=== PATIENT | female | born 1950 | race Caucasian/White ===

== ENCOUNTER → 2019-02-26 | Outpatient (CLI) | payer OTHER | END | disposition home or self-care (01) | LOC: RAH 10:16 | PROVIDERS: ATTEND Internal Medicine Critical Care Medicine | DX: R05 Cough (principal) | CPT/HCPCS: 71046 ==

== ENCOUNTER 2019-03-07 06:56 | Observation (INO) | payer OTHER ==
[2019-03-05 12:52] VITALS: BP 154/82
[~2019-03-07] VITALS: Ht 162.6 cm; Wt 86.7 kg
[2019-03-07] VITALS (22 sets, daily range): BP systolic 124–149; BP diastolic 69–85
[~2019-03-07 06:56] MED LIST: AEC81 PO; ATOR10 PO; ERGO500014 PO; LABE100T5 PO; LEVO75TA10 PO; LOSA50TA64 PO
[2019-03-07] MEDS ORDERED: LACTATED RINGERS 1000ML 1,000 ML IV ONE (07:41)
[2019-03-07] MEDS ORDERED: LIDOCAINE PF 2% 5ML ABBOJECT ONE (08:16)
[2019-03-07] MEDS ORDERED: PROPOFOL 10 MG/ML 20ML VIAL IV ONE (08:17)
[2019-03-07] MEDS ORDERED: ROPIVACAINE 0.5% 5MG/ML 30ML IJ ONE ×2 (08:17→08:22)
[2019-03-07] MEDS ORDERED: ROCURONIUM 10MG/1ML SYR 10 MG/ML ML ONE (08:17)
[2019-03-07] MEDS ORDERED: MIDAZOLAM HCL 1 MG/ML 2ML VIAL ONE (08:17)
[2019-03-07] MEDS ORDERED: FENTANYL CITRATE PF 50 MCG/1 ML 2ML VIAL ONE ×2 (08:19→11:05)
[2019-03-07] MEDS: CEFAZOLIN SODIUM 1 GM VIAL ONE ×2 (08:40→09:03)
[2019-03-07] MEDS ORDERED: LIDOCAINE HCL-MPF 1% 2ML VIAL IV PRN (08:45)
[2019-03-07] MEDS ORDERED: DiphenhydrAMINE HCL 50 MG/ML VIAL IVP PRN (08:45)
[2019-03-07] MEDS ORDERED: POTASSIUM CHLORIDE 20MEQ/100ML 100 ML IV PRN (08:45)
[2019-03-07] MEDS: ACETAMINOPHEN EXTRA STRENGTH 500 MG TABLET PO SCH ×3 (08:45→23:58)
[2019-03-07] MEDS ORDERED: POTASSIUM CHLORIDE 20 MEQ ERTAB PO PRN (08:45)
[2019-03-07] MEDS ORDERED: HYDROCODONE/ACETAMINOPHEN 5/325 MG TAB PO PRN (08:45)
[2019-03-07] MEDS ORDERED: ONDANSETRON HCL 4 MG/2 ML VIAL IVP PRN (08:45)
[2019-03-07] MEDS ORDERED: FERROUS FUMARATE 324 MG TABLET PO PRN (08:45)
[2019-03-07] MEDS ORDERED: POTASSIUM CHLORIDE 10% ELIXIR 20 MEQ/15 ML UDCUP PO PRN (08:45)
[2019-03-07] MEDS: POLYETHYLENE GLYCOL 3350 17 GM POWD.PACK PO SCH (09:00)
[2019-03-07] MEDS: ASPIRIN 325 MG TABLET PO SCH (09:00)
[2019-03-07] MEDS ORDERED: DEXAMETHASONE SOD PHOSPHATE 10MG/ML 1ML VIAL ONE (09:14)
[2019-03-07] MEDS ORDERED: BACITRACIN 50,000 UNIT VIAL ONE (09:15)
[2019-03-07] MEDS ORDERED: GLYCOPYRROLATE 1 MG/5 ML SYRINGE ONE (10:20)
[2019-03-07] MEDS ORDERED: NEOSTIGMINE 5MG/5ML SYR IV ONE (10:20)
[2019-03-07] MEDS ORDERED: ONDANSETRON HCL 4 MG/2 ML VIAL ONE (10:28)
[2019-03-07] MEDS ORDERED: TRANEXAMIC ACID 1000MG/10ML ONE (10:33)
[2019-03-07] MEDS ORDERED: MEPERIDINE-PF 25 MG/ML SYG ONE ×2 (10:46→10:52)
[2019-03-07] MEDS: SODIUM CHLORIDE 0.9% 1000ML 1,000 ML IV SCH ×2 (13:07→19:28)
--- NOTE | 2019-03-07 15:10 | NUR ---
DCP NOTE Patient lives with spouse, Mateusz Latham, in a mobile home with four steps. She has no home services or DME. PCP is Dr. Endy Clement. Pharmacy is [facility] located in [place]. Patient opened to MD recommendation for post discharge care. Patient's nurse, Anita, notified and will follow up with MD for post discharge orders. Addendum: 03/07/19 at 1513 by LINDSEY BASS SS Amended: Links added.
[2019-03-07] MEDS: HYDROCODONE/ACETAMINOPHEN 5/325 MG TAB PO PRN ×3 (15:25→23:20)
[2019-03-07] MEDS ORDERED: CEFAZOLIN SODIUM 1 GM VIAL IVP SCH (16:00)
--- NOTE | 2019-03-07 16:39 | NUR ---
BIMAL NOTES MD order for for Assisted and PT at home and a standard walker with no wheels. Patient signed consent for [facility]. Consent placed in chart. Patient information sent to and DME company. Pending insurance authorization. DME to be delivered to patient's room. Patient made aware. DCP is for home with on 03/08/19.
[2019-03-07] MEDS ORDERED: MORPHINE SULFATE 2 MG/ML 1ML SYG ONE (17:28)
[2019-03-07] MEDS ORDERED: LABETALOL HCL 100 MG TABLET ONE (19:26)
[2019-03-07] MEDS: LABETALOL HCL 100 MG TABLET PO SCH (19:29)
--- NOTE | 2019-03-07 20:00 | NUR ---
ASSESSMENT NOTE PATIENT AWAKE, ALERT, OX3 , ENCOURAGE DEEP BREATHING EXERCISES , REINFORCE IS PREVIOUSLY TAUGHT , LEFT KNEE WITH SHAZIA BANDAGE AND IMMOBILIZER INTACT, LLE WITH NUMBNESS , FAMILY MEMBER AT BEDSIDE, TEACH PLAN OF CARE AND EXPECTED OUTCOME, BOTH VERBALIZE UNDERSTANDING VIA TEACH BACK
[2019-03-07] MEDS: MORPHINE SULFATE 2 MG/ML 1ML SYG IM PRN (21:16)
[2019-03-07] MEDS ORDERED: CEFAZOLIN SODIUM 1 GM VIAL ONE (23:37)
[2019-03-08] VITALS (7 sets, daily range): BP systolic 97–133; BP diastolic 57–85
[2019-03-08] MEDS: MORPHINE SULFATE 2 MG/ML 1ML SYG IM PRN (01:33)
[2019-03-08] MEDS: SODIUM CHLORIDE 0.9% 1000ML 1,000 ML IV SCH (01:48)
[2019-03-08] MEDS ORDERED: KETOROLAC TROMETHAMINE 30MG/ML ONE (02:26)
[2019-03-08 04:12] LABS: MEAN CORPUSCULAR HEMOGLOBIN 27.5 pg (27.0-33.0); MEAN CORPUSCULAR HGB CONC 31.3 g/dL (32.0-36.0); MEAN CORPUSCULAR VOLUME 87.9 fL (79-99); PLATELET COUNT (AUTO) 298 K/uL (130-400); RED BLOOD CELL COUNT(AUTO) 3.64 MIL/uL (4.00-5.50); RED CELL DISTRIBUTION WIDTH 13.6 % (11.0-15.5); WHITE BLOOD COUNT (AUTO) 10.7 K/uL (4.8-10.8)
[2019-03-08 04:28] LABS: CREATININE 0.8 mg/dL (0.5-1.5); POTASSIUM 3.6 mmol/L (3.5-5.1)
[2019-03-08] MEDS: LEVOTHYROXINE 75 MCG TABLET PO SCH (06:03)
[2019-03-08] MEDS ORDERED: MORPHINE SULFATE 2 MG/ML 1ML SYG IV PRN (07:30)
[2019-03-08] MEDS: KETOROLAC TROMETHAMINE 30MG/ML IV PRN ×3 (08:30→20:03)
[2019-03-08] MEDS: POLYETHYLENE GLYCOL 3350 17 GM POWD.PACK PO SCH (08:30)
[2019-03-08] MEDS: ACETAMINOPHEN EXTRA STRENGTH 500 MG TABLET PO SCH ×3 (08:30→23:24)
[2019-03-08] MEDS: LABETALOL HCL 100 MG TABLET PO SCH ×2 (08:31→20:01)
[2019-03-08] MEDS: ASPIRIN 325 MG TABLET PO SCH (08:31)
[2019-03-08] MEDS ORDERED: ATORVASTATIN CALCIUM 10 MG TABLET ONE (08:35)
[2019-03-08] MEDS ORDERED: VITAMIN D PO SCH (09:00)
[2019-03-08] MEDS: HYDROCODONE/ACETAMINOPHEN 5/325 MG TAB PO PRN ×2 (10:53→15:02)
--- NOTE | 2019-03-08 12:44 | NUR ---
CM Note: [facility] approval CM spoke to Humaira ashton/[facility], pt has approval and acceptance. Pt safe to dc home once DME delivered and MD clear via private car. Primary nurse aware. CM to cont to follow up.
--- NOTE | 2019-03-08 12:45 | NUR ---
BIMAL Note: [facility] approval, pending delivery standard walker no wheels and 3 in 1 chair CM spoke to Karishma ashton/[facility], pt has approval for standard walker no wheels and 3 in 1 chair, pending standard walker no wheels to be delivered in pt's room this afternoon. Primary nurse aware. CM to cont to follow up.
[2019-03-08] MEDS ORDERED: ATORVASTATIN CALCIUM 10 MG TABLET PO SCH (13:00)
[2019-03-08] MEDS ORDERED: LOSARTAN 50 MG TABLET PO SCH (13:00)
--- NOTE | 2019-03-08 14:56 | NUR ---
NOTIFIED DR. HOLT REGARDING APPROVAL INFORMING PT REPORTS CONTINUED HEAVINESS TO LEFT LEG AND LABIA AREA. PT REPORTS SHE HAS NOT BEEN ABLE TO GET UP TO RESTROOM ON HER OWN YET ASKED BY DR. DAVIES. WILL CONTINUE TO MONITOR. PLAN FOR DISCHARGE TOMORROW.
[2019-03-09] MEDS: KETOROLAC TROMETHAMINE 30MG/ML IV PRN (04:29)
[2019-03-09 04:32] VITALS: BP 113/67
[2019-03-09] MEDS: LEVOTHYROXINE 75 MCG TABLET PO SCH (05:51)
[2019-03-09 08:00] VITALS: BP 117/53
[2019-03-09] MEDS: ASPIRIN 325 MG TABLET PO SCH (08:05)
[2019-03-09] MEDS: HYDROCODONE/ACETAMINOPHEN 5/325 MG TAB PO PRN (08:05)
[2019-03-09] MEDS: LABETALOL HCL 100 MG TABLET PO SCH (08:05)
[2019-03-09] MEDS: POLYETHYLENE GLYCOL 3350 17 GM POWD.PACK PO SCH (08:05)
[2019-03-09] MEDS: ACETAMINOPHEN EXTRA STRENGTH 500 MG TABLET PO SCH (08:27)
[2019-03-09 11:00] VITALS: BP 106/65
--- NOTE | 2019-03-09 12:00 | NUR ---
d/c report called to bradley at [facility];
--- NOTE | 2019-03-09 12:28 | NUR ---
pt given d/c instrutions on after care for a knee replacement including follow up with Dr Toro, wound care, activity level, aspiring change to 325mg daily for 1 month and electronic script to be sent by dr toro's office pt instructed to call md for any concerns; iv access removed; pt here to take her home.
[2019-03-10] MEDS ORDERED: BISACODYL 10 MG SUPP.RECT RC PRN (08:45)
== END 2019-03-09 12:41 | disposition home health service (06) ==
LOC: DAH 06:56 → DAHIP 06:57 → 4AH 11:05
PROVIDERS: ADMIT Orthopaedic Surgery Sports Medicine; ATTEND Orthopaedic Surgery Sports Medicine
DX: M17.12 Unilateral primary osteoarthritis, left knee (principal); I10 Essential (primary) hypertension; E89.0 Postprocedural hypothyroidism; E78.2 Mixed hyperlipidemia; Z79.82 Long term (current) use of aspirin; Z79.899 Other long term (current) drug therapy
CPT/HCPCS: 27447; 36415 ×2; 80048; 85027; 86850; 86900; 86901; 88304; 88311; 96372 ×2; 96374; 96375; 96376 ×2; 97039 ×2; 97116 ×3; 97161; 97530 ×3; A4215; A4221; A4222; A4223; A4510; A4600; A4649 ×2; A4663; A4930; A5120; A6223; C1776; G0378 ×50; G8979; G8980; G8981; G8982; G8983; J0690 ×3; J1100; J1885 ×4; J2001; J2175 ×2; J2250; J2405; J2704; J2710; J2795 ×2; J3010 ×2; J3490 ×2; J7030; J7120

== ENCOUNTER → 2020-08-12 | Outpatient (CLI) | payer OTHER ==
[~2020-08-12] MED LIST changes: -ERGO500014 PO; +ERGO500093 PO
== END | disposition home or self-care (01) ==
LOC: SHCH 10:53
PROVIDERS: ATTEND Internal Medicine Cardiovascular Disease
DX: I08.1 Rheumatic disorders of both mitral and tricuspid valves (principal); R55 Syncope and collapse
CPT/HCPCS: 93306; 93356

== ENCOUNTER → 2020-08-14 | Outpatient (CLI) | payer OTHER ==
[~2020-08-14] MED LIST changes: +REGADENOSON 0.4 MG/5 ML PF SYG IVP SCH
== END | disposition home or self-care (01) ==
LOC: SHCH 08:02
PROVIDERS: ATTEND Internal Medicine Cardiovascular Disease
DX: I25.10 Atherosclerotic heart disease of native coronary artery without angina pectoris (principal); R07.9 Chest pain, unspecified
CPT/HCPCS: 78452; 93017; 96374; A9500 ×2; J2785

== ENCOUNTER → 2020-12-01 | Outpatient (CLI) | payer OTHER ==
[~2020-12-01] MED LIST changes: -REGADENOSON 0.4 MG/5 ML PF SYG IVP SCH
== END | disposition home or self-care (01) ==
LOC: SLP 20:25
PROVIDERS: ATTEND Internal Medicine Critical Care Medicine
DX: G47.09 Other insomnia (principal)
CPT/HCPCS: 95810

== ENCOUNTER → 2023-05-19 | Outpatient (CLI) | payer OTHER ==
[~2023-05-19] MED LIST changes: -LABE100T5 PO; +LABE100T7 PO
== END | disposition home or self-care (01) ==
LOC: RAH 13:38
PROVIDERS: ATTEND Internal Medicine Critical Care Medicine
DX: R93.89 Abnormal findings on diagnostic imaging of other specified body structures (principal)
CPT/HCPCS: 71250

== ENCOUNTER → 2023-06-05 | Outpatient (CLI) | payer OTHER ==
[2023-06-05 21:47] VITALS: PULSE 76; RESP 20
[2023-06-05 22:22] VITALS: PULSE 64; RESP 16
[2023-06-05 22:30] VITALS: PULSE 74; RESP 12
[2023-06-05 23:00] VITALS: PULSE 64; PULSE 72; RESP 18; RESP 20
[2023-06-05 23:30] VITALS: PULSE 62; PULSE 72; RESP 16; RESP 20
[2023-06-06] VITALS (10 sets, daily range): PULSE 60–74; RESP 16–24
== END | disposition home or self-care (01) ==
LOC: SLP 20:32
PROVIDERS: ATTEND Internal Medicine Critical Care Medicine
DX: G47.33 Obstructive sleep apnea (adult) (pediatric) (principal)
CPT/HCPCS: 95810

== ENCOUNTER → 2023-06-10 | Outpatient (CLI) | payer OTHER ==
[2023-06-10 21:52] VITALS: PULSE 68; RESP 16
[2023-06-10 22:30] VITALS: PULSE 68; RESP 12
[2023-06-10 23:00] VITALS: PULSE 68; RESP 14
[2023-06-10 23:30] VITALS: PULSE 64; RESP 14
[2023-06-11] VITALS (12 sets, daily range): PULSE 60–68; RESP 12–16
== END ==
LOC: SLP 20:23
PROVIDERS: ATTEND Internal Medicine Critical Care Medicine
DX: G47.33 Obstructive sleep apnea (adult) (pediatric) (principal)
CPT/HCPCS: 95811

== ENCOUNTER → 2024-08-01 | Outpatient (CLI) | payer OTHER ==
--- NOTE | 2024-08-01 14:46 | HMCIMG ---
CT calcium scoring Clinical Information: [facility] SCREENING Comparison: None CT Dose Index (CTDI): 13.30 mGy Dose Length Product (DLP): 186.18 total mGy-cm Findings: Calcium score 601.4. Significant calcification. The CT scan is not a complete chest CT. Covered portion is reviewed for incidental findings. No incidental findings seen. IMPRESSION: Calcium score as above. Calcium score reference stable: 0: No identifiable calcification 1- 10: Minimal identifiable calcification 11-100: Mild calcification 101- 400: Moderate calcification 401 and above: Significant calcification Automated exposure control and adequate statistical iterative reconstructions were utilized as dose reduction techniques.
== END | disposition home or self-care (01) ==
LOC: RAH 12:45
PROVIDERS: ATTEND Internal Medicine Critical Care Medicine
DX: Z13.6 Encounter for screening for cardiovascular disorders (principal); I51.5 Myocardial degeneration
CPT/HCPCS: 75571

== ENCOUNTER → 2024-10-08 | Outpatient (CLI) | payer OTHER ==
[2024-10-08] MEDS: REGADENOSON 0.4 MG/5 ML PF SYG IVP ONE (12:21)
--- NOTE | 2024-10-08 16:58 | HMCSR ---
APPROVED REPORT Height: 5 ft 5in Weight: 170 lbs TEST INDICATIONS Hypertension/HDD The imaging protocol used to acquire images was Rest Tc-99m/stress Tc-99m 1 day Consent: The procedure was explained and understood by the patient. Informerd consent was witnessed Gavino Haywood RN First, low dose rest was performed then high dose stress. RESTING DATA: The resting ekg shows: NSR Rest SPECT myocardial perfusion imaging was performed in supine position minutes following the intra venous injection of 11 mCi of Tc-99 Sestamibi. Time of rest injection: 11:00: Date: 10/08/2024 PHARMACOLOGIC STRESS: Pharmacologic stress test was performed by injecting regadenoson 0.4 mg IV push followed by the intra venous injection of 30 mCi of Tc-99 Sestamibi. Time of stress injection: 12:19: Date: 10/08/2024 Heart Rate at time of stress injection: 67 bpm. Gated Stress SPECT was performed 60 minutes after stress injection. The images were gated to evaluate regional wall motion and calculate left ventricular ejection fracti on. STRESS DETAILS Reason for Termination: Infusion complete Stress Symptoms: No chest pain or symptoms Max HR Achieved: 100 bpm % of APMHR Achieved: 79 Max Blood Pressure: 143/67 mmHg Stress ECG: NSR Conclusion No ischemia Normal Variant apical cleft Mild fixed septal thiniing possible due to GI artifact LV ejection fraction 76% Normal LV wall motion Normal LV size at rest and stress No increased lung uptake
== END | disposition home or self-care (01) ==
LOC: RAH 10:36
PROVIDERS: ATTEND Internal Medicine Cardiovascular Disease
DX: I34.0 Nonrheumatic mitral (valve) insufficiency (principal); I78.8 Other diseases of capillaries; I11.9 Hypertensive heart disease without heart failure
CPT/HCPCS: 78452; 93017; J2785; A9500 ×2

== ENCOUNTER 2025-01-09 12:15 | Emergency (ER) | payer OTHER ==
[~2025-01-09] VITALS: Ht 165.1 cm; Wt 77.1 kg
[~2025-01-09 12:15] MED LIST changes: +LABE-9 PO; -LABE100T7 PO
--- NOTE | 2025-01-09 12:37 | ERN ---
ED Note History of Present Illness Stated Complaint: HEADACHE Chief Complaint: Headache Time Seen by MD: 12:18 Dictation: PATIENT IS A 74-YEAR-OLD FEMALE COMING IN WITH HER WITH COMPLAINTS OF HAVING A HEADACHE SINCE LAST WEEK AFTER TRIPPING ON SOME BUSHES IN HER YD AND LANDING ON HER RIGHT SIDE TO INCLUDE HER RIGHT PARIETAL AREA SCALP ON-CALL. NO LOC NO NAUSEA VOMITING NO BLOOD THINNERS. THERE WAS NO TRAUMA ALERT CRITERIA. PATIENT STATES THE HEADACHE HAS NOT RESPONDED TO TYLENOL AND SHE GOT CONCERNED. NO NECK PAIN NO BACK PAIN NEUROLOGICALLY SHE IS INTACT TO CURRENTLY Allergies: Coded Allergies: No Known Drug Allergies (Unverified Allergy, Unknown, 03/06/19) Home Meds Reported Medications Aspirin (ASPIRIN 81 MG ECTAB) 81 Mg Ectab, 81 MG PO PCLUNCH, TAB.EC 03/05/19 Ergocalciferol (Vitamin D2) (Vitamin D2) 1,250 Mcg Capsule, 1250 MCG PO QWEEK, CAP 03/05/19 Losartan Potassium (Losartan Potassium) 50 Mg Tablet, 50 MG PO PCLUNCH, TAB 03/05/19 Levothyroxine Sodium (Levothyroxine Sodium) 75 Mcg Tablet, 75 MCG PO ACBKFST, TAB 03/05/19 Labetalol HCl (Labetalol HCl) 100 Mg Tablet, 100 MG PO BID, TAB 03/05/19 Atorvastatin Calcium (LIPITOR) 10 Mg Tab, 10 MG PO PCLUNCH, TAB 03/05/19 Past Medical History Past Medical History: High Cholesterol, Hypertension, Hypothyroid Surgical History: Other Surgical History Other: LT KNEE SX, History: Not Applicable RN Note Reviewed/Agreed w/PFSH: Yes Review of System Dictation CONSTITUTIONAL: NEGATIVE EXCEPT FOR HPI HEAD/FACE: NEGATIVE EXCEPT FOR HPI EENT: NEGATIVE EXCEPT FOR HPI RESPIRATORY: NEGATIVE EXCEPT FOR HPI GASTROINTESTINAL/ABDOMINAL: NEGATIVE EXCEPT FOR HPI GENITOURINARY: NEGATIVE EXCEPT FOR HPI MUSCULOSKELETAL: NEGATIVE EXCEPT FOR HPI INTEGUMENTARY: NEGATIVE EXCEPT FOR HPI NEUROLOGICAL/PSYCH: NEGATIVE EXCEPT FOR HPI HEADACHE ONE WEEK HEMATOLOGIC/LYMPHATIC: NEGATIVE EXCEPT FOR HPI ALL SYSTEMS NEGATIVE, EXCEPT NOTED ABOVE. 13 POINT REVIEW OF SYSTEMS ASSESSED AND ALL NEGATIVE EXCEPT FOR ABOVE. Initial Vital Sign VS Vital Signs Date Time Temp Pulse Resp B/P (MAP) Pulse Ox O2 Delivery O2 Flow Rate FiO2 01/09/25 12:17 98.4 70 16 124/72 98 Room Air 0 Physical Exam Dictation VITAL SIGNS REVIEWE [place] ACUTE DISTRESS, WELL DEVELOPED, NOURISHED. HEAD AND FACE: NON-TRAUMATIC. NO BERMUDEZ OR RACCOON SIGN EYES: PERRL, PINK CONJUNCTIVAS, EYELID NO TRAUMA, ANTERIOR CHAMBER WITH ARCUS SENILIS. EARS: PINNAS INTACT AND NO SIGNS OF TRAUMA OR ERYTHEMA EAR CANALS CLEAR AND NO DISCHARGE TM NO ERYTHEMA NO HEMOTYMPANUM NOSE: NO DISCHARGE, NO BLEEDING. OROPHARYNX: MOUTH NORMAL, TONGUE PINK, PHARYNX CLEAR,NO ERYTHEMA, TONSILS NO EXUDATES, NO ABSCESSES NOTED, MUCOUS MEMBRANE MOIST NECK: SUPPLE, NON-TENDER, NO THYROMEGALY, NO MASSES, NO JVD, NO BRUITS BREAST:DEFERRED CHEST:NO TENDERNESS, NO CREPITUS, NO PARADOXICAL MOVEMENT, NO RETRACTIONS LUNGS:CLEAR, WELL-VENTILATED, SYMMETRIC, NO RALES, NO WHEEZING, NO RHONCHI, NO STRIDOR, GOOD BREATH SOUNDS BILATERALLY HEART: REGULAR RATE, REGULAR RHYTHM, NO MURMUR, NO GALLOPS VASCULAR: NO PERIPHERAL EDEMA, ABDOMEN: SOFT, POSITIVE BOWEL SOUNDS, NONDISTENDED, NO GUARDING, NONTENDER, NO REBOUND, NO MASSES NO HEPATOMEGALY, NO SPLENOMEGALY, NO SANTOS'S SIGN, NO HERNIAS. RECTAL: DEFERRED GENITAL: DEFERRED NEUROLOGICAL: NORMAL SPEECH, MOTOR FUNCTION INTACT, SENSORY FUNCTION INTACT NIH IS 0. GAIT IS STEADY IN TRIAGE MUSCULOSKELETAL: NECK NONTENDER, FULL RANGE OF MOTION, BACK NONTENDER, FULL RANGE OF MOTION, EXTREMITIES: NONTENDER, FULL RANGE OF MOTION SKIN: COLOR PINK, DRY, NO TURGOR, NO RASH, NO LACERATIONS, NO ABRASIONS, NO CONTUSIONS. LYMPHATIC: DEFERRED Results (Laboratory/Radiology) Laboratory/Radiology LINICAL HISTORY: HEADACHE FOR ONE WEEK AFTER FALL LAST WEEK TECHNIQUE: Axial computed tomography images of the head/brain without intravenous contrast. COMPARISON: None provided. FINDINGS: BRAIN: No evidence of acute hemorrhage. No mass lesion. No CT evidence for acute territorial infarct. No midline shift or extra-axial collections. VENTRICLES: No hydrocephalus. ORBITS: The orbits are unremarkable. SINUSES AND MASTOIDS: The paranasal sinuses and mastoid air cells are clear. BONES: No fracture. SOFT TISSUES: Unremarkable. IMPRESSION: No acute intracranial abnormality. /[facility] Reviewed?: Yes ED Course ED Course Orders Procedure Category Date Status Time Ct Head/Brain W/O CT 01/09/25 Resulted Contrast 12:20 Acetaminophen 500mg PHA 01/09/25 Complete Tab (Tylenol 500mg T 12:30 Current Medications Medications (Trade) Dose Ordered Sig/João Route PRN Reason Start Time Stop Time Status Last Admin Dose Admin Acetaminophen (TYLenol 500MG TAB) 1,000 mg ONCE ONCE PO 01/09/25 12:30 01/09/25 12:36 DC Vital Signs Date Time Temp Pulse Resp B/P (MAP) Pulse Ox O2 Delivery O2 Flow Rate FiO2 01/09/25 12:17 98.4 70 16 124/72 98 Room Air 0 PATIENT NEUROLOGICALLY INTACT. HER HOME WITH DIAGNOSIS POSTTRAUMATIC HEADACHE AND SEE HER PRIMARY CARE DOCTOR IN [place] Medical Decision Making MDM MEDICAL DECISION-MAKING BASED ON PHYSICAL EXAM EXAMINATION HPI DUE TO CHRONICITY OF HEADACHE CT WAS INDICATED CT NEGATIVE PATIENT DISCHARGED HOME WITH NEGATIVE CT AND POSTTRAUMATIC HEADACHE. DX & DISP Disposition: Discharge Departure Impression: Primary Impression: Post-traumatic headache Condition: Stable Additional Instructions: FOLLOW-UP WITH PRIMARY CARE PROVIDER IN 1 TO 2 DAYS. TAKE MEDICATIONS DIRECTED HERE IN THE EMERGENCY ROOM. OKAY TO CONTINUE HOME MEDICATIONS UNLESS OTHERWISE DISCUSSED DURING YOUR VISIT IN THE EMERGENCY ROOM TODAY. RETURN TO YOUR NEAREST EMERGENCY ROOM IF SYMPTOMS WORSEN OR IF THERE IS NO IMPROVEMENT. CALL 911 IF YOU NEED IMMEDIATE ASSISTANCE. TAKE TYLENOL OR MOTRIN [id number] NEEDED AND IF NO CONTRAINDICATIONS ARE PRESENT. INCREASE ORAL HYDRATION. A WOUND CULTURE OR URINE CULTURE WAS ORDERED HERE IN THE EMERGENCY ROOM DEPARTMENT PLEASE FOLLOW-UP WITH PRIMARY CARE PROVIDER AND ADVISE THEM TO GET REPEAT PORTS FROM OUR FACILITY. IF YOU HAD ANY SHAZIA WRAP/SPLINTS THAT WERE APPLIED HERE, PLEASE DO NOT REMOVE THEM UNTIL YOU SEE YOUR PRIMARY CARE OR SPECIALTY. DIET AND ACTIVITY TOLERATED. TAKE TYLENOL [id number] NEEDED FOR HEADACHE. SEE YOUR PRIMARY CARE DOCTOR FOR FOLLOW UP Referrals: LIBBY JONES MD (PCP) Time of Disposition: 13:36 I have reviewed the case, and I agree with, Diagnosis and Plan SOTO RAMOS TOOL INSPECTOR Jan 09, 2025 12:37
--- NOTE | 2025-01-09 13:26 | HMCIMG ---
EXAM: CT Head Without IV contrast. CLINICAL HISTORY: HEADACHE FOR ONE WEEK AFTER FALL LAST WEEK TECHNIQUE: Axial computed tomography images of the head/brain without intravenous contrast. COMPARISON: None provided. FINDINGS: BRAIN: No evidence of acute hemorrhage. No mass lesion. No CT evidence for acute territorial infarct. No midline shift or extra-axial collections. VENTRICLES: No hydrocephalus. ORBITS: The orbits are unremarkable. SINUSES AND MASTOIDS: The paranasal sinuses and mastoid air cells are clear. BONES: No fracture. SOFT TISSUES: Unremarkable. IMPRESSION: No acute intracranial abnormality. /[place]
[2025-01-09 14:04] VITALS: BP 124/72; PULSE 70; RESP 16; TEMP 98.4; O2SAT 98
== END 2025-01-09 14:24 | disposition home or self-care (01) ==
LOC: EDH 12:15
DX: G44.309 Post-traumatic headache, unspecified, not intractable (principal); E03.9 Hypothyroidism, unspecified; E78.00 Pure hypercholesterolemia, unspecified; I10 Essential (primary) hypertension; Z79.899 Other long term (current) drug therapy
CPT/HCPCS: 70450; 99284